=== PATIENT | male | born 1965 | race Caucasian/White ===

== ENCOUNTER 2024-06-13 16:14 | Emergency (ER) | payer MEDICAID ==
[~2024-06-13] VITALS: Ht 162.6 cm; Wt 81.6 kg
[2024-06-13 16:26] VITALS: O2SAT 98
[2024-06-13] MEDS ORDERED: TOPUD MT (21:23)
[2024-06-13] MEDS ORDERED: NAPR275T96 MT (21:23)
[2024-06-13] MEDS: KETOROLAC 30MG/ML VIAL IM ONE (21:40)
[2024-06-13 21:45] VITALS: BP 128/83; PULSE 90; RESP 16; TEMP 36.89184; O2SAT 98
== END 2024-06-13 21:47 | disposition home or self-care (01) ==
LOC: ER 16:14
DX: S93.601A Unspecified sprain of right foot, initial encounter (principal); Z90.49 Acquired absence of other specified parts of digestive tract
CPT/HCPCS: 99283; 73630; 96372; J1885